=== PATIENT | female | born 1940 | race Two or more races ===

== ENCOUNTER 2020-08-15 15:18 | Observation (INO) | payer SELFPAY ==
[~2020-08-15] VITALS: Ht 149.9 cm; Wt 82.6 kg
[2020-08-15 15:56] LABS: BASO % 1 % (0-3); EOS # 0.1 x10^3/uL (0.0-0.7); EOS % 2 % (0-3); HEMOGLOBIN 11.6 g/dL (12.0-15.5); LYMPH # 1.3 x10^3/uL (1.0-4.8); LYMPH % 27 % (24-48); MEAN CORPUSCULAR HEMOGLOBIN 34 pg (25-35); MEAN CORPUSCULAR HGB CONC 34 g/dL (31-37); MEAN CORPUSCULAR VOLUME 99 fL (79-100); MONO # 0.5 x10^3/uL (0.0-1.1); MONO % 10 % (0-9); NEUT % 61 % (31-73); PLATELET COUNT 247 x10^3/uL (140-400); RED BLOOD COUNT 3.45 x10^6/uL (3.50-5.40); RED CELL DISTRIBUTION WIDTH 13.7 % (11.5-14.5)
--- NOTE | 2020-08-15 16:05 | RAD ---
XR CHEST 1V History: Reason: chest pain / Spl. Instructions: / History: Comparison: None. Findings: Patchy left basilar opacity. No consolidation or pleural effusion. Normal heart size. No pneumothorax . Glenohumeral DJD. Impression: 1. Patchy left basilar opacity, may represent atelectasis or developing infiltrate. If persistent cl inical concern, recommend follow-up. Electronically signed by: Juan Alberto Macdonald DO (08/15/2020 4:02 PM) [facility]
[2020-08-15 16:07] LABS: CALCIUM 9.8 mg/dL (8.5-10.1); GFR 23.9; POTASSIUM 4.8 mmol/L (3.5-5.1)
[2020-08-15 16:13] LABS: ALBUMIN 3.9 g/dL (3.4-5.0); ALBUMIN/GLOBULIN RATIO 1.1 (1.0-1.7); TOTAL BILIRUBIN 0.4 mg/dL (0.2-1.0); TOTAL PROTEIN 7.6 g/dL (6.4-8.2)
[2020-08-15] MEDS ORDERED: ASPIRIN CHEWABLE 81 MG TABLET. PO ONE (16:15)
--- NOTE | 2020-08-15 16:25 | PHYS DOC ---
Past Medical History Past Medical History: Diabetes-Type II, High Cholesterol, Hypertension Additional Past Medical Histor: CKD, OSTEOPOROSIS, OA, VAGINAL BLEEDING 07/26 Past Surgical History: Cholecystectomy, Knee Replacement Smoking Status: Never Smoker Alcohol Use: None General Adult EDM: Chief Complaint: CHEST PAIN HPI: HPI: Patient is a 80 year old [f__sex] who presents with [] Review of Systems: Review of Systems: Constitutional: Denies fever or chills Eyes: Denies redness or eye pain HENT: Denies nasal congestion or sore throat Respiratory: Denies cough or shortness of breath Cardiovascular: Reports chest pain; reports palpitations GI: Denies abdominal pain, nausea, or vomiting : Denies dysuria or hematuria Musculoskeletal: Denies back pain or joint pain Integument: Denies rash or skin lesions Neurologic: Denies headache, focal weakness or sensory changes Complete systems were reviewed and found to be within normal limits, except as documented in this note. Heart Score: C/O Chest Pain: Yes HEART Score for Chest Pain: HEART Score for Chest Pain Response (Comments) Value History Moderately Suspicious 1 ECG Normal 0 Age > 65 2 Risk Factors >3 Risk Factors or Hx CAD 2 Troponin < Normal Limit 0 Total 5 Risk Factors: Risk Factors: DM, Current or recent (<one month) smoker, HTN, HLP, family history of CAD, obesity. Risk Scores: Score 0 - 3: 2.5% MACE over next 6 weeks - Discharge Home Score 4 - 6: 20.3% MACE over next 6 weeks - Admit for Clinical Observation Score 7 - 10: 72.7% MACE over next 6 weeks - Early Invasive Strategies Current Medications: Current Medications Medications (Trade) Dose Ordered Sig/Kings Start Time Stop Time Status Last Admin Dose Admin Aspirin (Aspirin Chewable) 243 mg 1X ONCE 08/15/20 16:15 08/15/20 16:16 DC 08/15/20 16:18 243 MG Allergies: Allergies: Allergies Coded Allergies Type Severity Reaction Last Updated Verified NAEEM Inhibitors Allergy Intermediate 08/15/20 Yes Physical Exam: PE: Constitutional: Well developed, well nourished, no acute distress, non-toxic appearance HENT: Normocephalic, atraumatic Eyes: PERRL, EOMI, conjunctiva normal, no discharge Neck: Normal range of motion, no tenderness, supple Lungs & Thorax: No respiratory distress, equal chest rise and fall Abdomen: Soft, no tenderness Skin: Warm, dry, no erythema, no rash Back: No tenderness, no CVA tenderness Extremities: No tenderness, ROM intact, no edema Neurologic: Alert and oriented X 3, normal motor function, normal sensory function, no focal deficits noted Psychologic: Affect normal, judgment normal Current Patient Data: Labs: Laboratory Tests Test 08/15/20 15:38 White Blood Count 5.0 x10^3/uL (4.0-11.0) Red Blood Count 3.45 x10^6/uL (3.50-5.40) L Hemoglobin 11.6 g/dL (12.0-15.5) L Hematocrit 34.0 % (36.0-47.0) L Mean Corpuscular Volume 99 fL (79-100) Mean Corpuscular Hemoglobin 34 pg (25-35) Mean Corpuscular Hemoglobin Concent 34 g/dL (31-37) Red Cell Distribution Width 13.7 % (11.5-14.5) Platelet Count 247 x10^3/uL (140-400) Neutrophils (%) (Auto) 61 % (31-73) Lymphocytes (%) (Auto) 27 % (24-48) Monocytes (%) (Auto) 10 % (0-9) H Eosinophils (%) (Auto) 2 % (0-3) Basophils (%) (Auto) 1 % (0-3) Neutrophils # (Auto) 3.0 x10^3/uL (1.8-7.7) Lymphocytes # (Auto) 1.3 x10^3/uL (1.0-4.8) Monocytes # (Auto) 0.5 x10^3/uL (0.0-1.1) Eosinophils # (Auto) 0.1 x10^3/uL (0.0-0.7) Basophils # (Auto) 0.0 x10^3/uL (0.0-0.2) Sodium Level 143 mmol/L (136-145) Potassium Level 4.8 mmol/L (3.5-5.1) Chloride Level 108 mmol/L (98-107) H Carbon Dioxide Level 23 mmol/L (21-32) Anion Gap 12 (6-14) Blood Urea Nitrogen 43 mg/dL (7-20) H Creatinine 2.0 mg/dL (0.6-1.0) H Estimated GFR (Cockcroft-Gault) 23.9 BUN/Creatinine Ratio 22 (6-20) H Glucose Level 94 mg/dL (70-99) Calcium Level 9.8 mg/dL (8.5-10.1) Magnesium Level 2.0 mg/dL (1.8-2.4) Total Bilirubin 0.4 mg/dL (0.2-1.0) Aspartate Amino Transferase (AST) 16 U/L (15-37) Alanine Aminotransferase (ALT) 26 U/L (14-59) Alkaline Phosphatase 84 U/L (46-116) Troponin I Quantitative < 0.017 ng/mL (0.000-0.055) Total Protein 7.6 g/dL (6.4-8.2) Albumin 3.9 g/dL (3.4-5.0) Albumin/Globulin Ratio 1.1 (1.0-1.7) Lipase 255 U/L (73-393) Laboratory Tests 08/15/20 15:38 Laboratory Tests 08/15/20 15:38 Vital Signs: Vital Signs Date Time Temp Pulse Resp B/P (MAP) Pulse Ox O2 Delivery O2 Flow Rate FiO2 08/15/20 15:33 98.8 69 12 163/81 (108) 100 Room Air 98.8 EKG: EKG: @1532 NSR at 66bpm, NO ST elevation, QRS 80ms, QT/QTc 394/415ms @1707 NSR at 76bpm, occasional PVC, NO ST elevation, QRS 86ms, QT/QTc 380/432ms Radiology/Procedures: Radiology/Procedures: PROCEDURE: PORTABLE CHEST 1V XR CHEST 1V History: Reason: chest pain / Spl. Instructions: / History: Comparison: None. Findings: Patchy left basilar opacity. No consolidation or pleural effusion. Normal heart size. No pneumothorax. Glenohumeral DJD. Impression: 1. Patchy left basilar opacity, may represent atelectasis or developing infiltrate. If persistent clinical concern, recommend follow-up. Electronically signed by: Juan Alberto Macdonald DO (08/15/2020 4:02 PM) [facility] Course & Med Decision Making: Course & Med Decision Making Pertinent Labs and Imaging studies reviewed. (See chart for details) Patient requiring admission for further evaluation and treatment. Discussed with Dr. Lo (hospitalist) who is in agreement with admission. Discussed fi ndings and plan with patient and family, who acknowledge understanding and agreement. Barry Disclaimer: Barry Disclaimer: This electronic medical record was generated, in whole or in part, using a voice recognition dictation system. Departure Departure Impression: Primary Impression: Chest pain Qualified Codes: R07.9 - Chest pain, unspecified Disposition: 09 ADMITTED INPATIENT (Observation) Admitting Physician: YONG Jalloh) Condition: STABLE DEVENDRA SUMMERS DO Aug 15, 2020 16:25
[2020-08-15] MEDS ORDERED: DEXTROSE 50% 25 GM / 50ML DISP.SYRIN. IV PRN (18:30)
[2020-08-15] MEDS ORDERED: fentaNYL PF VIAL 100 MCG/2 ML VIAL IV PRN (18:30)
[2020-08-15] MEDS ORDERED: ONDANSETRON PF 4 MG/2 ML VIAL. IV PRN (18:30)
[2020-08-15 20:50] VITALS: BP 146/66
[2020-08-15] MEDS ORDERED: NITROGLYCERIN SUBLINGUAL 0.4 MG BOTTLE OF 25. SL PRN (21:15)
[2020-08-15] MEDS ORDERED: MORPHINE SULFATE 4 MG/ML VIAL. IV PRN (21:15)
[2020-08-15] MEDS ORDERED: hydrALAZINE 20 MG/ML VIAL. IVP PRN (21:15)
--- NOTE | 2020-08-15 21:16 | PDOC1 ---
History and Physical Date of Admission Date of Admission DATE: 08/15/20 TIME: 20:59 Identification/Chief Complaint Chief Complaint Chest pain Source Source: Caregiver, Patient History of Present Illness History of Present Illness Patient is a 80-year-old female with past medical history prediabetes, HLD, HTN, CKD IV, prediabetes, who presents to the ED at the behest of her PCP with complaints of left-sided chest pain that started today. Patient is largely Azeri-speaking so much history is obtained from her daughter. She reports chest pain 10/10 that feels more like pressure. She denies any history of similar symptoms and denies any other associated symptoms. Labs on admission showed hemoglobin 11.6, hematocrit 34, BUN 43, creatinine 2.0, troponin <0.017. In ED she received aspirin and at the time my evaluation states her pain is now resolved. Given her significant cardiac risk factors, will admit patient for further medical management. Past Medical History Past Medical History HLD, HTN, prediabetes, CKD, OA Past Surgical History Past Surgical History Cholecystectomy, Knee Replacement Family History Family History: Hypertension Social History Smoke: No ALCOHOL: none Drugs: None Current Problem List Problem List Problems Medical Problems: (1) Chest pain Status: Acute Current Medications Current Medications Current Medications Aspirin (Aspirin Chewable) 243 mg 1X ONCE PO Last administered on 08/15/20at 16:18; Start 08/15/20 at 16:15; Stop 08/15/20 at 16:16; Status DC Ondansetron HCl (Zofran) 4 mg PRN Q8HRS PRN IV NAUSEA/VOMITING; Start 08/15/20 at 18:30; Stop 08/16/20 at 18:29 Fentanyl Citrate (Fentanyl 2ml Vial) 25 mcg Q2HR PRN IV PAIN; Start 08/15/20 at 18:30; Stop 08/16/20 at 18:29 Insulin Human Lispro (HumaLOG) 0-5 UNITS TIDWMEALS SQ ; Start 08/16/20 at 08:00 Dextrose (Dextrose 50%-Water Syringe) 12.5 gm PRN Q15MIN PRN IV SEE COMMENTS; Start 08/15/20 at 18:30 Allergies Allergies: Coded Allergies: NAEEM Inhibitors (Verified Allergy, Intermediate, 08/15/20) ROS Review of System GENERAL: No history of weight change, weakness or fevers. SKIN: No bruising, hair changes or rashes. EYES: No blurred, double or loss of vision. NOSE AND THROAT: No history of nosebleeds, hoarseness or sore throat. HEART: Chest pain. Denies palpitations. LUNGS: Denies cough, hemoptysis, wheezing or shortness of breath. GASTROINTESTINAL: Denies nausea, vomiting, abdominal pain. GENITOURINARY: Denies dysuria, frequency, urgency, hematuria. NEUROLOGIC: Denies history of numbness, tingling, tremor or weakness. PSYCHIATRIC: Denies anxiety, denies depression. ENDOCRINE: No history of heat or cold intolerance, polyuria or polydipsia. EXTREMITIES: Denies muscle weakness, joint pain, pain on walking or stiffness. Physical Exam Physical Exam General: Alert, Oriented X3, Cooperative, No acute distress HEENT: PERRLA, EOMI Lungs: Clear to auscultation, Normal air movement Heart: RRR, no murmurs Cardiovascular: S1, S2 Abdomen: Normal bowel sounds, Soft, No tenderness Extremities: No clubbing, No cyanosis Skin: No rashes, No significant lesion Neuro: Normal speech, Normal tone, Sensation intact Psych/Mental Status: Mental status NL, Mood NL Vitals Vitals Vital Signs Date Time Temp Pulse Resp B/P (MAP) Pulse Ox O2 Delivery O2 Flow Rate FiO2 08/15/20 20:50 98.1 59 18 146/66 (92) 100 Room Air 98.1 Labs Labs Laboratory Tests Test 08/15/20 15:38 08/15/20 19:05 White Blood Count 5.0 x10^3/uL (4.0-11.0) Red Blood Count 3.45 x10^6/uL (3.50-5.40) Hemoglobin 11.6 g/dL (12.0-15.5) Hematocrit 34.0 % (36.0-47.0) Mean Corpuscular Volume 99 fL (79-100) Mean Corpuscular Hemoglobin 34 pg (25-35) Mean Corpuscular Hemoglobin Concent 34 g/dL (31-37) Red Cell Distribution Width 13.7 % (11.5-14.5) Platelet Count 247 x10^3/uL (140-400) Neutrophils (%) (Auto) 61 % (31-73) Lymphocytes (%) (Auto) 27 % (24-48) Monocytes (%) (Auto) 10 % (0-9) Eosinophils (%) (Auto) 2 % (0-3) Basophils (%) (Auto) 1 % (0-3) Neutrophils # (Auto) 3.0 x10^3/uL (1.8-7.7) Lymphocytes # (Auto) 1.3 x10^3/uL (1.0-4.8) Monocytes # (Auto) 0.5 x10^3/uL (0.0-1.1) Eosinophils # (Auto) 0.1 x10^3/uL (0.0-0.7) Basophils # (Auto) 0.0 x10^3/uL (0.0-0.2) Sodium Level 143 mmol/L (136-145) Potassium Level 4.8 mmol/L (3.5-5.1) Chloride Level 108 mmol/L (98-107) Carbon Dioxide Level 23 mmol/L (21-32) Anion Gap 12 (6-14) Blood Urea Nitrogen 43 mg/dL (7-20) Creatinine 2.0 mg/dL (0.6-1.0) Estimated GFR (Cockcroft-Gault) 23.9 BUN/Creatinine Ratio 22 (6-20) Glucose Level 94 mg/dL (70-99) Calcium Level 9.8 mg/dL (8.5-10.1) Magnesium Level 2.0 mg/dL (1.8-2.4) Total Bilirubin 0.4 mg/dL (0.2-1.0) Aspartate Amino Transf (AST/SGOT) 16 U/L (15-37) Alanine Aminotransferase (ALT/SGPT) 26 U/L (14-59) Alkaline Phosphatase 84 U/L (46-116) Creatine Kinase 97 U/L (26-192) Creatine Kinase MB (Mass) 1.6 ng/mL (0.0-3.6) Creatine Kinase MB Relative Index 1.6 % (0-4) Troponin I Quantitative < 0.017 ng/mL (0.000-0.055) < 0.017 ng/mL (0.000-0.055) QB-Hjf-W-Type Natriuretic Peptide 255 pg/mL (0-449) Total Protein 7.6 g/dL (6.4-8.2) Albumin 3.9 g/dL (3.4-5.0) Albumin/Globulin Ratio 1.1 (1.0-1.7) Lipase 255 U/L (73-393) Laboratory Tests Test 08/15/20 15:38 08/15/20 19:05 White Blood Count 5.0 x10^3/uL (4.0-11.0) Red Blood Count 3.45 x10^6/uL (3.50-5.40) Hemoglobin 11.6 g/dL (12.0-15.5) Hematocrit 34.0 % (36.0-47.0) Mean Corpuscular Volume 99 fL (79-100) Mean Corpuscular Hemoglobin 34 pg (25-35) Mean Corpuscular Hemoglobin Concent 34 g/dL (31-37) Red Cell Distribution Width 13.7 % (11.5-14.5) Platelet Count 247 x10^3/uL (140-400) Neutrophils (%) (Auto) 61 % (31-73) Lymphocytes (%) (Auto) 27 % (24-48) Monocytes (%) (Auto) 10 % (0-9) Eosinophils (%) (Auto) 2 % (0-3) Basophils (%) (Auto) 1 % (0-3) Neutrophils # (Auto) 3.0 x10^3/uL (1.8-7.7) Lymphocytes # (Auto) 1.3 x10^3/uL (1.0-4.8) Monocytes # (Auto) 0.5 x10^3/uL (0.0-1.1) Eosinophils # (Auto) 0.1 x10^3/uL (0.0-0.7) Basophils # (Auto) 0.0 x10^3/uL (0.0-0.2) Sodium Level 143 mmol/L (136-145) Potassium Level 4.8 mmol/L (3.5-5.1) Chloride Level 108 mmol/L (98-107) Carbon Dioxide Level 23 mmol/L (21-32) Anion Gap 12 (6-14) Blood Urea Nitrogen 43 mg/dL (7-20) Creatinine 2.0 mg/dL (0.6-1.0) Estimated GFR (Cockcroft-Gault) 23.9 BUN/Creatinine Ratio 22 (6-20) Glucose Level 94 mg/dL (70-99) Calcium Level 9.8 mg/dL (8.5-10.1) Magnesium Level 2.0 mg/dL (1.8-2.4) Total Bilirubin 0.4 mg/dL (0.2-1.0) Aspartate Amino Transf (AST/SGOT) 16 U/L (15-37) Alanine Aminotransferase (ALT/SGPT) 26 U/L (14-59) Alkaline Phosphatase 84 U/L (46-116) Creatine Kinase 97 U/L (26-192) Creatine Kinase MB (Mass) 1.6 ng/mL (0.0-3.6) Creatine Kinase MB Relative Index 1.6 % (0-4) Troponin I Quantitative < 0.017 ng/mL (0.000-0.055) < 0.017 ng/mL (0.000-0.055) KK-Tjz-C-Type Natriuretic Peptide 255 pg/mL (0-449) Total Protein 7.6 g/dL (6.4-8.2) Albumin 3.9 g/dL (3.4-5.0) Albumin/Globulin Ratio 1.1 (1.0-1.7) Lipase 255 U/L (73-393) Images Images PATIENT: JESSA ALVAREZ LACCOUNT: [id number] : 1940 LOCATION: ER AGE: 80 SEX: F EXAM STATUS: PRE ER ORD. PHYSICIAN: DEVENDRA SUMMERS DO REASON: chest pain PROCEDURE: PORTABLE CHEST 1V XR CHEST 1V History: Reason: chest pain / Spl. Instructions: / History: Comparison: None. Findings: Patchy left basilar opacity. No consolidation or pleural effusion. Normal heart size. No pneumothorax. Glenohumeral DJD. Impression: 1. Patchy left basilar opacity, may represent atelectasis or developing infiltrate. If persistent clinical concern, recommend follow-up. Electronically signed by: Juan Alberto Macdonald DO (08/15/2020 4:02 PM) [facility] VTE Prophylaxis Ordered VTE Prophylaxis Devices: No VTE Pharmacological Prophylaxi: Yes Assessment/Plan Assessment/Plan Chest pain Chronic renal insufficiency Prediabetes Plan: Initial troponin <0.017, will continue to trend and place consultation to cardiology. Provide morphine and nitroglycerin as needed Echocardiogram pending Telemetry HbA1c 6.2 (08/08/2020) Lipids pending Resume home medications FEN - Cardiac diet, then NPO after midnight. PPX - Heparin DNR Dispo - inpatient for above Advance Care Planning: Total time spent [id number] with patient 16 minutes in discussion with goals of care, comfort care, end-of-life care, pain management, code status; patient names her daughter (Ceci Garcia) as surrogate decision- maker. Justifications for Admission Other Justification CHELSI TENORIO MD Aug 15, 2020 21:16
[2020-08-15] MEDS ORDERED: CALCIUM CARBONATE 500 MG TAB.CHEW PO PRN (21:30)
[2020-08-15] MEDS ORDERED: MORPHINE SULFATE 2 MG/ML VIAL. IV PRN (21:30)
[2020-08-15] MEDS ORDERED: MAGNESIUM HYDROXIDE 2,400 MG/30 ML ORAL.SUSP. PO PRN (21:30)
[2020-08-15] MEDS ORDERED: ONDANSETRON PF 4 MG/2 ML VIAL. IVP PRN (21:30)
[2020-08-15] MEDS ORDERED: ZOLPIDEM 5 MG TABLET. PO PRN (21:30)
[2020-08-15] MEDS ORDERED: BISACODYL 10 MG SUPP.RECT. PR PRN (21:30)
[2020-08-15] MEDS ORDERED: MAG HYDROX/ALUMINUM HYD/SIMETH 30 ML ORAL.SUSP PO PRN (21:30)
[2020-08-15] MEDS ORDERED: ACETAMINOPHEN 325 MG TABLET. PO PRN (21:30)
[2020-08-15 22:25] VITALS: BP 121/59
[2020-08-16] MEDS ORDERED: CHLO25TA10 PO (02:00)
[2020-08-16] MEDS ORDERED: [UNRECOGNIZED DRUG - CODE] IV (02:00)
[2020-08-16] MEDS ORDERED: LIDO700A21 TP (02:00)
[2020-08-16] MEDS ORDERED: ATOR40TA59 PO (02:00)
[2020-08-16] MEDS ORDERED: LORA10TA3 PO (02:00)
[2020-08-16] MEDS ORDERED: CARV6.2511 PO (02:00)
[2020-08-16] MEDS ORDERED: OMEG1CAP38 PO (02:00)
[2020-08-16] MEDS ORDERED: DICL20GE TP (02:00)
[2020-08-16] MEDS ORDERED: LOSA-73 PO (02:00)
[2020-08-16] MEDS ORDERED: SODI650T PO (02:00)
[2020-08-16 02:14] VITALS: BP 152/68
[2020-08-16 07:00] VITALS: BP 151/66
[2020-08-16 07:11] LABS: CALCIUM 9.3 mg/dL (8.5-10.1); CREATININE 2.1 mg/dL (0.6-1.0); GFR 22.6
[2020-08-16 07:17] LABS: CHOLESTEROL/HDL RATIO 4.6
[2020-08-16] MEDS ORDERED: INSULIN LISPRO 300 UNITS/3 ML VIAL. SQ SCH (08:00)
--- NOTE | 2020-08-16 08:38 | PDOC ---
[employer] PROGRESS NOTE Date of Service DOS: DATE: 08/16/20 TIME: 08:38 Chief Complaint Chief Complaint A/P: Chest pain Chronic renal insufficiency Prediabetes - a1c 6.2 Abnormal chest x-ray -procalcitonin negative no cough. This is atelectasis. Plan: Initial troponin <0.017, will continue to trend and place consultation to cardiology. Provide morphine and nitroglycerin as needed Echocardiogram pending Telemetry HbA1c 6.2 (08/08/2020) Lipids pending Resume home medications FEN - Cardiac diet, then NPO after midnight. PPX - Heparin DNR Dispo - inpatient for above Advance Care Planning: Total time spent [id number] with patient 16 minutes in discussion with goals of care, comfort care, end-of-life care, pain management, code status; patient names her daughter (Ceci Garcia) as surrogate decision-maker. History of Present Illness History of Present Illness Patient is a 80-year-old female with past medical history prediabetes, HLD, HTN, CKD IV, prediabetes, who presents to the ED at the behest of her PCP with complaints of left-sided chest pain that started today. Patient is largely [place]an-speaking so much history is obtained from her daughter. She reports chest pain 10/10 that feels more like pressure. She denies any history of similar symptoms and denies any other associated symptoms. Labs on admission showed hemoglobin 11.6, hematocrit 34, BUN 43, creatinine 2.0, troponin <0.017. In ED she received aspirin and at the time my evaluation states her pain is now resolved. Given her significant cardiac risk factors, will admit patient for further medical management. Triglycerides 174, LDL 81, HDL 32. Creatinine stable at 2.1 troponins trended out negative. CP resolved. No SOB. BP still a bit up, added amlodipine. Echocardiogram today. Consults: Cardiology Vitals/I&O Vitals/I&O: Vital Signs Date Time Temp Pulse Resp B/P (MAP) Pulse Ox O2 Delivery O2 Flow Rate FiO2 08/16/20 07:00 97.8 64 16 151/66 (94) 98 Room Air 97.8 I & O 08/15/20 08/15/20 08/16/20 15:00 23:00 07:00 Intake Total 0 ml Balance 0 ml Physical Exam General: Alert, Oriented X3, Cooperative Heart: Regular rate, Normal S1, Normal S2 Lungs: Clear Abdomen: Normal bowel sounds, Soft Extremities: No clubbing, No cyanosis Skin: No rashes, No breakdown Labs Labs: Laboratory Tests Test 08/15/20 15:38 08/15/20 19:05 08/15/20 21:35 08/16/20 06:20 White Blood Count 5.0 x10^3/uL (4.0-11.0) Red Blood Count 3.45 x10^6/uL (3.50-5.40) Hemoglobin 11.6 g/dL (12.0-15.5) Hematocrit 34.0 % (36.0-47.0) Mean Corpuscular Volume 99 fL (79-100) Mean Corpuscular Hemoglobin 34 pg (25-35) Mean Corpuscular Hemoglobin Concent 34 g/dL (31-37) Red Cell Distribution Width 13.7 % (11.5-14.5) Platelet Count 247 x10^3/uL (140-400) Neutrophils (%) (Auto) 61 % (31-73) Lymphocytes (%) (Auto) 27 % (24-48) Monocytes (%) (Auto) 10 % (0-9) Eosinophils (%) (Auto) 2 % (0-3) Basophils (%) (Auto) 1 % (0-3) Neutrophils # (Auto) 3.0 x10^3/uL (1.8-7.7) Lymphocytes # (Auto) 1.3 x10^3/uL (1.0-4.8) Monocytes # (Auto) 0.5 x10^3/uL (0.0-1.1) Eosinophils # (Auto) 0.1 x10^3/uL (0.0-0.7) Basophils # (Auto) 0.0 x10^3/uL (0.0-0.2) Sodium Level 143 mmol/L (136-145) 145 mmol/L (136-145) Potassium Level 4.8 mmol/L (3.5-5.1) 5.0 mmol/L (3.5-5.1) Chloride Level 108 mmol/L (98-107) 110 mmol/L (98-107) Carbon Dioxide Level 23 mmol/L (21-32) 22 mmol/L (21-32) Anion Gap 12 (6-14) 13 (6-14) Blood Urea Nitrogen 43 mg/dL (7-20) 42 mg/dL (7-20) Creatinine 2.0 mg/dL (0.6-1.0) 2.1 mg/dL (0.6-1.0) Estimated GFR (Cockcroft-Gault) 23.9 22.6 BUN/Creatinine Ratio 22 (6-20) Glucose Level 94 mg/dL (70-99) 109 mg/dL (70-99) Calcium Level 9.8 mg/dL (8.5-10.1) 9.3 mg/dL (8.5-10.1) Magnesium Level 2.0 mg/dL (1.8-2.4) Total Bilirubin 0.4 mg/dL (0.2-1.0) Aspartate Amino Transf (AST/SGOT) 16 U/L (15-37) Alanine Aminotransferase (ALT/SGPT) 26 U/L (14-59) Alkaline Phosphatase 84 U/L (46-116) Creatine Kinase 97 U/L (26-192) Creatine Kinase MB (Mass) 1.6 ng/mL (0.0-3.6) Creatine Kinase MB Relative Index 1.6 % (0-4) Troponin I Quantitative < 0.017 ng/mL (0.000-0.055) < 0.017 ng/mL (0.000-0.055) < 0.017 ng/mL (0.000-0.055) BO-Tge-C-Type Natriuretic Peptide 255 pg/mL (0-449) Total Protein 7.6 g/dL (6.4-8.2) Albumin 3.9 g/dL (3.4-5.0) Albumin/Globulin Ratio 1.1 (1.0-1.7) Lipase 255 U/L (73-393) Triglycerides Level 174 mg/dL (0-150) Cholesterol Level 148 mg/dL (0-200) LDL Cholesterol, Calculated 81 mg/dL (0-100) VLDL Cholesterol, Calculated 35 mg/dL (0-40) Non-HDL Cholesterol Calculated 116 mg/dL (0-129) HDL Cholesterol 32 mg/dL (40-60) Cholesterol/HDL Ratio 4.6 Assessment and Plan Assessmemt and Plan Problems Medical Problems: (1) Chest pain Status: Acute Comment Review of Relevant I have reviewed the following items rosendo (where applicable) has been applied. Medications: Current Medications Medications (Trade) Dose Ordered Sig/Kings Route PRN Reason Start Time Stop Time Status Last Admin Dose Admin Aspirin (Aspirin Chewable) 243 mg 1X ONCE PO 08/15/20 16:15 08/15/20 16:16 DC 08/15/20 16:18 Justifications for Admission Other Justification RADHA LERMA MD Aug 16, 2020 08:38
[2020-08-16] MEDS ORDERED: HEPARIN for SUB-Q USE 5,000 UNIT/ML VIAL. SQ SCH (09:00)
--- NOTE | 2020-08-16 10:42 | NUR ---
SS following for discharge planning. SS reviewed pt chart and discussed with pt RN. Pt is from home with spouse and is currently on room air. Cardiology consulted. Self pay. Med Assist following and applying for [place] [employer]. SS will continue to follow for discharge planning.
[2020-08-16 10:51] VITALS: BP 174/77
--- NOTE | 2020-08-16 10:57 | PDOC2 ---
KATERINA MARTIN UTILITY HAND 08/16/20 1057: CARDIAC CONSULT DATE OF CONSULT Date of Consult DATE: 08/16/20 TIME: 10:36 REASON FOR CONSULT Reason for Consult: Chest pain REFERRING PHYSICIAN Referring Physician: Aleksandra SOURCE Source: Caregiver (grandson, spouse), Chart review, Patient HISTORY OF PRESENT ILLNESS HISTORY OF PRESENT ILLNESS This is a pleasant 80 yo female admitted for complains of chest pain. Reports that she started having this pain mainly to her left lower midsternal angle at subcostal region and reproducible with palpation. No prior falls, MVA or injuty. No associated SOA, palpitations, nausea or vomiting. No changes to her activity tolerance. Her BP was elevated when she came. No prior hx of CAD, VTE or arrhythmias. PAST MEDICAL HISTORY Cardiovascular: HTN, Hyperlipidemia Pulmonary: No pertinent hx CENTRAL NERVOUS SYSTEM: Other (No pertinent history) GI: No pertinent hx Heme/Onc: No pertinent hx Hepatobiliary: No pertinent hx Psych: No pertinent hx Musculoskeletal: Osteoarthritis Infectious disease: No pertinent hx ENT: Other (cataract) Renal/: Chronic renal insuff Endocrine: Diabetes Dermatology: No pertinent hx PAST SURGICAL HISTORY Past Surgical History: Cholecystectomy, Total knee replacement FAMILY HISTORY Family History noncontributory to CV SOCIAL HISTORY Smoke: No ALCOHOL: none Drugs: None Lives: with Family CURRENT MEDICATIONS CURRENT MEDICATIONS Current Medications Medications (Trade) Dose Ordered Sig/Kings Route PRN Reason Start Time Stop Time Status Last Admin Dose Admin Aspirin (Aspirin Chewable) 243 mg 1X ONCE PO 08/15/20 16:15 08/15/20 16:16 DC 08/15/20 16:18 Heparin Sodium (Porcine) (Heparin Sodium) 5,000 unit Q12HR SQ 08/16/20 09:00 08/16/20 10:22 ALLERGIES ALLERGIES: Coded Allergies: NAEEM Inhibitors (Verified Allergy, Intermediate, 08/15/20) ROS Review of System 14 point ROS evaluated with pertinent positives noted per HPI PHYSICAL EXAM General: Alert, Oriented X3, Cooperative, No acute distress HEENT: Atraumatic, Mucous membr. moist/pink Lungs: Clear to auscultation, Normal air movement Heart: Regular rate (SR), Normal S1, Normal S2, No murmurs Abdomen: Soft, No tenderness Extremities: No cyanosis, No edema Skin: No breakdown, No significant lesion Neuro: Normal speech, Sensation intact Psych/Mental Status: Mental status NL, Mood NL MUSCULOSKELETAL: Osteoarthritic changes both hands VITALS/I&O VITALS/I&O: Vital Signs Date Time Temp Pulse Resp B/P (MAP) Pulse Ox O2 Delivery O2 Flow Rate FiO2 08/16/20 07:00 97.8 64 16 151/66 (94) 98 Room Air 97.8 I & O 08/15/20 08/15/20 08/16/20 15:00 23:00 07:00 Intake Total 0 ml Balance 0 ml LABS Lab: Laboratory Tests Test 08/15/20 15:38 08/15/20 19:05 08/15/20 21:35 08/16/20 06:20 White Blood Count 5.0 x10^3/uL (4.0-11.0) Red Blood Count 3.45 x10^6/uL (3.50-5.40) L Hemoglobin 11.6 g/dL (12.0-15.5) L Hematocrit 34.0 % (36.0-47.0) L Mean Corpuscular Volume 99 fL (79-100) Mean Corpuscular Hemoglobin 34 pg (25-35) Mean Corpuscular Hemoglobin Concent 34 g/dL (31-37) Red Cell Distribution Width 13.7 % (11.5-14.5) Platelet Count 247 x10^3/uL (140-400) Neutrophils (%) (Auto) 61 % (31-73) Lymphocytes (%) (Auto) 27 % (24-48) Monocytes (%) (Auto) 10 % (0-9) H Eosinophils (%) (Auto) 2 % (0-3) Basophils (%) (Auto) 1 % (0-3) Neutrophils # (Auto) 3.0 x10^3/uL (1.8-7.7) Lymphocytes # (Auto) 1.3 x10^3/uL (1.0-4.8) Monocytes # (Auto) 0.5 x10^3/uL (0.0-1.1) Eosinophils # (Auto) 0.1 x10^3/uL (0.0-0.7) Basophils # (Auto) 0.0 x10^3/uL (0.0-0.2) Sodium Level 143 mmol/L (136-145) 145 mmol/L (136-145) Potassium Level 4.8 mmol/L (3.5-5.1) 5.0 mmol/L (3.5-5.1) Chloride Level 108 mmol/L (98-107) H 110 mmol/L (98-107) H Carbon Dioxide Level 23 mmol/L (21-32) 22 mmol/L (21-32) Anion Gap 12 (6-14) 13 (6-14) Blood Urea Nitrogen 43 mg/dL (7-20) H 42 mg/dL (7-20) H Creatinine 2.0 mg/dL (0.6-1.0) H 2.1 mg/dL (0.6-1.0) H Estimated GFR (Cockcroft-Gault) 23.9 22.6 BUN/Creatinine Ratio 22 (6-20) H Glucose Level 94 mg/dL (70-99) 109 mg/dL (70-99) H Calcium Level 9.8 mg/dL (8.5-10.1) 9.3 mg/dL (8.5-10.1) Magnesium Level 2.0 mg/dL (1.8-2.4) Total Bilirubin 0.4 mg/dL (0.2-1.0) Aspartate Amino Transferase (AST) 16 U/L (15-37) Alanine Aminotransferase (ALT) 26 U/L (14-59) Alkaline Phosphatase 84 U/L (46-116) Creatine Kinase 97 U/L (26-192) Creatine Kinase MB (Mass) 1.6 ng/mL (0.0-3.6) Creatine Kinase MB Relative Index 1.6 % (0-4) Troponin I Quantitative < 0.017 ng/mL (0.000-0.055) < 0.017 ng/mL (0.000-0.055) < 0.017 ng/mL (0.000-0.055) XH-Wpg-P-Type Natriuretic Peptide 255 pg/mL (0-449) Total Protein 7.6 g/dL (6.4-8.2) Albumin 3.9 g/dL (3.4-5.0) Albumin/Globulin Ratio 1.1 (1.0-1.7) Lipase 255 U/L (73-393) Triglycerides Level 174 mg/dL (0-150) H Cholesterol Level 148 mg/dL (0-200) LDL Cholesterol, Calculated 81 mg/dL (0-100) VLDL Cholesterol, Calculated 35 mg/dL (0-40) Non-HDL Cholesterol Calculated 116 mg/dL (0-129) HDL Cholesterol 32 mg/dL (40-60) L Cholesterol/HDL Ratio 4.6 Procalcitonin < 0.10 ng/mL (0.00-0.10) Laboratory Tests 08/15/20 15:38 Laboratory Tests 08/15/20 15:38 08/16/20 06:20 ASSESSMENT/PLAN ASSESSMENT/PLAN 1. Atypical chest pain: suspect MSK 2. DM2 3. HTN urgency: labile episodes 4. HLP 5. CKD: possibly 3-4 Recommendations 1. TTE pending. May DC this afternoon. Discussed with pt and grandson about CAD symptoms 2. ASA. Continue home BP and statin meds. HBPM 3. Given her CKD I would not continue her chlorthalidone. Continue losartan, coreg and will add norvasc. 4. She will need a nephrology referral if she does not have a specialist LUIS EDUARDO PAINTER MD 08/16/20 1456: CARDIAC CONSULT ASSESSMENT/PLAN ASSESSMENT/PLAN Patient seen and examined. Agree with SURGICAL TECHNOLOGY INSTRUCTOR's assessment and plan CP with atypical features. CO ruled out 2D echo showed normal LVF without any wall motion abnormalities Agree with adding norvasc for better BP control Ischemic workup could be considered as outpatient Thank you for your consultation KATERINA MARTIN APRN Aug 16, 2020 10:57 LUIS EDUARDO PAINTER MD Aug 16, 2020 14:56
[2020-08-16] MEDS ORDERED: CARVEDILOL 6.25 MG TABLET. PO SCH (11:30)
[2020-08-16] MEDS ORDERED: AMLO-186 PO (11:38)
--- NOTE | 2020-08-16 11:41 | PDOC3 ---
Discharge Summary Visit Information Date of Admission: Aug 15, 2020 Date of Discharge: Aug 16, 2020 Admitting Diagnosis: Chest pain Final Diagnosis Problems Medical Problems: (1) Chest pain Status: Acute Brief Hospital Course Allergies Allergies Coded Allergies Type Severity Reaction Last Updated Verified NAEEM Inhibitors Allergy Intermediate 08/15/20 Yes Vital Signs Vital Signs Date Time Temp Pulse Resp B/P (MAP) Pulse Ox O2 Delivery O2 Flow Rate FiO2 08/16/20 10:51 98.0 64 18 174/77 (109) 97 Room Air 98.0 Lab Results Laboratory Tests Test 08/15/20 15:38 08/15/20 19:05 08/15/20 21:35 08/16/20 06:20 White Blood Count 5.0 x10^3/uL (4.0-11.0) Red Blood Count 3.45 x10^6/uL (3.50-5.40) Hemoglobin 11.6 g/dL (12.0-15.5) Hematocrit 34.0 % (36.0-47.0) Mean Corpuscular Volume 99 fL (79-100) Mean Corpuscular Hemoglobin 34 pg (25-35) Mean Corpuscular Hemoglobin Concent 34 g/dL (31-37) Red Cell Distribution Width 13.7 % (11.5-14.5) Platelet Count 247 x10^3/uL (140-400) Neutrophils (%) (Auto) 61 % (31-73) Lymphocytes (%) (Auto) 27 % (24-48) Monocytes (%) (Auto) 10 % (0-9) Eosinophils (%) (Auto) 2 % (0-3) Basophils (%) (Auto) 1 % (0-3) Neutrophils # (Auto) 3.0 x10^3/uL (1.8-7.7) Lymphocytes # (Auto) 1.3 x10^3/uL (1.0-4.8) Monocytes # (Auto) 0.5 x10^3/uL (0.0-1.1) Eosinophils # (Auto) 0.1 x10^3/uL (0.0-0.7) Basophils # (Auto) 0.0 x10^3/uL (0.0-0.2) Sodium Level 143 mmol/L (136-145) 145 mmol/L (136-145) Potassium Level 4.8 mmol/L (3.5-5.1) 5.0 mmol/L (3.5-5.1) Chloride Level 108 mmol/L (98-107) 110 mmol/L (98-107) Carbon Dioxide Level 23 mmol/L (21-32) 22 mmol/L (21-32) Anion Gap 12 (6-14) 13 (6-14) Blood Urea Nitrogen 43 mg/dL (7-20) 42 mg/dL (7-20) Creatinine 2.0 mg/dL (0.6-1.0) 2.1 mg/dL (0.6-1.0) Estimated GFR (Cockcroft-Gault) 23.9 22.6 BUN/Creatinine Ratio 22 (6-20) Glucose Level 94 mg/dL (70-99) 109 mg/dL (70-99) Calcium Level 9.8 mg/dL (8.5-10.1) 9.3 mg/dL (8.5-10.1) Magnesium Level 2.0 mg/dL (1.8-2.4) Total Bilirubin 0.4 mg/dL (0.2-1.0) Aspartate Amino Transf (AST/SGOT) 16 U/L (15-37) Alanine Aminotransferase (ALT/SGPT) 26 U/L (14-59) Alkaline Phosphatase 84 U/L (46-116) Creatine Kinase 97 U/L (26-192) Creatine Kinase MB (Mass) 1.6 ng/mL (0.0-3.6) Creatine Kinase MB Relative Index 1.6 % (0-4) Troponin I Quantitative < 0.017 ng/mL (0.000-0.055) < 0.017 ng/mL (0.000-0.055) < 0.017 ng/mL (0.000-0.055) WI-Lba-B-Type Natriuretic Peptide 255 pg/mL (0-449) Total Protein 7.6 g/dL (6.4-8.2) Albumin 3.9 g/dL (3.4-5.0) Albumin/Globulin Ratio 1.1 (1.0-1.7) Lipase 255 U/L (73-393) Triglycerides Level 174 mg/dL (0-150) Cholesterol Level 148 mg/dL (0-200) LDL Cholesterol, Calculated 81 mg/dL (0-100) VLDL Cholesterol, Calculated 35 mg/dL (0-40) Non-HDL Cholesterol Calculated 116 mg/dL (0-129) HDL Cholesterol 32 mg/dL (40-60) Cholesterol/HDL Ratio 4.6 Procalcitonin < 0.10 ng/mL (0.00-0.10) Laboratory Tests Test 08/15/20 15:38 08/15/20 19:05 08/15/20 21:35 08/16/20 06:20 White Blood Count 5.0 x10^3/uL (4.0-11.0) Red Blood Count 3.45 x10^6/uL (3.50-5.40) Hemoglobin 11.6 g/dL (12.0-15.5) Hematocrit 34.0 % (36.0-47.0) Mean Corpuscular Volume 99 fL (79-100) Mean Corpuscular Hemoglobin 34 pg (25-35) Mean Corpuscular Hemoglobin Concent 34 g/dL (31-37) Red Cell Distribution Width 13.7 % (11.5-14.5) Platelet Count 247 x10^3/uL (140-400) Neutrophils (%) (Auto) 61 % (31-73) Lymphocytes (%) (Auto) 27 % (24-48) Monocytes (%) (Auto) 10 % (0-9) Eosinophils (%) (Auto) 2 % (0-3) Basophils (%) (Auto) 1 % (0-3) Neutrophils # (Auto) 3.0 x10^3/uL (1.8-7.7) Lymphocytes # (Auto) 1.3 x10^3/uL (1.0-4.8) Monocytes # (Auto) 0.5 x10^3/uL (0.0-1.1) Eosinophils # (Auto) 0.1 x10^3/uL (0.0-0.7) Basophils # (Auto) 0.0 x10^3/uL (0.0-0.2) Sodium Level 143 mmol/L (136-145) 145 mmol/L (136-145) Potassium Level 4.8 mmol/L (3.5-5.1) 5.0 mmol/L (3.5-5.1) Chloride Level 108 mmol/L (98-107) 110 mmol/L (98-107) Carbon Dioxide Level 23 mmol/L (21-32) 22 mmol/L (21-32) Anion Gap 12 (6-14) 13 (6-14) Blood Urea Nitrogen 43 mg/dL (7-20) 42 mg/dL (7-20) Creatinine 2.0 mg/dL (0.6-1.0) 2.1 mg/dL (0.6-1.0) Estimated GFR (Cockcroft-Gault) 23.9 22.6 BUN/Creatinine Ratio 22 (6-20) Glucose Level 94 mg/dL (70-99) 109 mg/dL (70-99) Calcium Level 9.8 mg/dL (8.5-10.1) 9.3 mg/dL (8.5-10.1) Magnesium Level 2.0 mg/dL (1.8-2.4) Total Bilirubin 0.4 mg/dL (0.2-1.0) Aspartate Amino Transf (AST/SGOT) 16 U/L (15-37) Alanine Aminotransferase (ALT/SGPT) 26 U/L (14-59) Alkaline Phosphatase 84 U/L (46-116) Creatine Kinase 97 U/L (26-192) Creatine Kinase MB (Mass) 1.6 ng/mL (0.0-3.6) Creatine Kinase MB Relative Index 1.6 % (0-4) Troponin I Quantitative < 0.017 ng/mL (0.000-0.055) < 0.017 ng/mL (0.000-0.055) < 0.017 ng/mL (0.000-0.055) KD-Chx-X-Type Natriuretic Peptide 255 pg/mL (0-449) Total Protein 7.6 g/dL (6.4-8.2) Albumin 3.9 g/dL (3.4-5.0) Albumin/Globulin Ratio 1.1 (1.0-1.7) Lipase 255 U/L (73-393) Triglycerides Level 174 mg/dL (0-150) Cholesterol Level 148 mg/dL (0-200) LDL Cholesterol, Calculated 81 mg/dL (0-100) VLDL Cholesterol, Calculated 35 mg/dL (0-40) Non-HDL Cholesterol Calculated 116 mg/dL (0-129) HDL Cholesterol 32 mg/dL (40-60) Cholesterol/HDL Ratio 4.6 Procalcitonin < 0.10 ng/mL (0.00-0.10) Brief Hospital Course Ms Del Valle is a 80-year-old female with past medical history prediabetes, HLD, HTN, CKD IV who presents to the ED at the behest of her PCP with complaints of left-sided chest pain that started today. Patient is largely Albanian- speaking so much history is obtained from her daughter. She reports chest pain 10/10 that feels more like pressure. She denies any history of similar symptoms and denies any other associated symptoms. Labs on admission showed hemoglobin 11.6, hematocrit 34, BUN 43, creatinine 2.0, troponin <0.017. In ED she received aspirin and at the time my evaluation states her pain is now resolved. Given her significant cardiac risk factors, will admit patient for further medical management. Triglycerides 174, LDL 81, HDL 32. Creatinine stable at 2.1 troponins trended out negative. CP resolved. No SOB. BP still a bit up, added amlodipine. Echocardiogram today. Consults: Cardiology Pain resolved with addition of amlodipine and treatment of GERD. Problem list: Chest pain Chronic renal insufficiency - follow up outpatient with nephrology Prediabetes - a1c 6.2 - diet control. Metformin contraindicated in CKD and patient over age 80 Abnormal chest x-ray -procalcitonin negative no cough. This is atelectasis. Echo with left ventricular systolic function normal ejection fraction estimated at 55%, normal LV segmental wall motion mild aortic regurgitation mild tricuspid regurgitation with estimated PAP 32 to 35 mmHg. Discussed findings with family bedside gave referral for outpatient nephrology follow-up as well as cardiology follow-up and primary care. Social work to get sobra application for noncitizen. Amlodipine 5 mg sent to [facility] and instructed to stop chlorthalidone okay to continue carvedilol Greater than 30 minutes spent on d/c home with family Discharge Information Condition at Discharge: Improved Follow Up: Weeks (1) Disposition/Orders: D/C to Home Scheduled Acetaminophen (Acetaminophen) 1,000 Mg/100 Ml Piggyback, 500 MG IV BID for , (Reported) Entered as Reported by: Veronica Massey on 08/16/20199 Last Action: Reviewed on 08/16/20200 by Veronica Massey Amlodipine Besylate (Amlodipine Besylate) 5 Mg Tablet, 5 MG PO DAILY for HTN for 90 Days, #90 Ref 1 Prescribed by: RADHA LERMA MD on 08/16/20 1138 Atorvastatin Calcium (Atorvastatin Calcium) 40 Mg Tablet, 1 TAB PO QHS for , #90 Ref 3 (Reported) Entered as Reported by: Veronica Massey on 08/16/20199 Last Action: Continued on 08/16/201055 by KATERINA MARTIN Carvedilol (Carvedilol ) 6.25 Mg Tablet, 6.25 MG PO BIDWMEALS for CARDIAC, (Reported) Entered as Reported by: Veronica Massey on 08/16/20199 Last Action: Continued on 08/16/201055 by KATERINA MARTIN Diclofenac Sodium (Voltaren Arthritis Pain) 20 Gm Gel..gram., 20 GM TP BID for , (Reported) Entered as Reported by: Veronica Massey on 08/16/20199 Last Action: Reviewed on 08/16/20200 by Veronica Massey Lidocaine (Lidocaine PATCH ) 1 Each Adh..patch, 1 EACH TP DAILY for FOR LOCAL PAIN, (Reported) REMOVE AFTER 12 HOURS Entered as Reported by: Veronica Massey on 08/16/20199 Last Action: Reviewed on 08/16/20200 by Veronica Massey Loratadine (Loratadine) 10 Mg Tablet, 1 TAB PO DAILY for , #30 Ref 5 (Reported) Entered as Reported by: Veronica Massey on 08/16/20199 Last Action: Reviewed on 08/16/20200 by Veronica Massey Losartan Potassium (Losartan Potassium) 50 Mg Tablet, 50 MG PO DAILY for HYPERTENSION, (Reported) Entered as Reported by: Veronica Massey on 08/16/20199 Last Action: Continued on 08/16/201055 by KATERINA MARTIN Pearl-3 Fatty Acids/Fish Oil (Pearl 3 Fish Oil Softgel) 1 Each Capsule.dr, 1 EACH PO BID for , (Reported) Entered as Reported by: Veronica Massey on 08/16/20199 Last Action: Reviewed on 08/16/20200 by Veronica Massye Sodium Bicarbonate (Sodium Bicarbonate) 650 Mg Tablet, 2 TAB PO BID for , #60 Ref 5 (Reported) Entered as Reported by: Veronica Massey on 08/16/20199 Last Action: Reviewed on 08/16/20200 by Veronica Massey Discontinued Medications Chlorthalidone (Chlorthalidone ) 25 Mg Tablet, 25 MG PO DAILY for DIURETIC, (Reported) Entered as Reported by: Veronica Massey on 08/16/20199 Last Action: Discontinued on 08/16/20 1056 by KATERINA MARTIN Justicifation of Admission Dx: Justifications for Admission: Justification of Admission Dx: Yes RADHA LERMA MD Aug 16, 2020 11:41
[2020-08-16] MEDS ORDERED: ASPIRIN ENTERIC COATED 81 MG TABLET.DR. PO SCH (12:00)
[2020-08-16] MEDS ORDERED: LOSARTAN POTASSIUM 50 MG TABLET. PO SCH (12:00)
--- NOTE | 2020-08-16 12:37 | CARD ---
MR#: [id number] Date of Study: 08/16/2020 Ordering Physician: CHELSI TEONRIO, Referring Physician: CHELSI TENORIO, Tech: Jacki Em [facility] APPROVED REPORT EXAM: Two-dimensional and M-mode echocardiogram with Doppler and color Doppler. Other Information Quality : Average Rhythm : NSR INDICATION Chest Pain RISK FACTORS Hypertension Obesity 2D DIMENSIONS RVDd2.6 (2.9-3.5cm)Left Atrium(2D)3.4 (1.6-4.0cm) IVSd1.2 (0.7-1.1cm)Aortic Root(2D)2.9 (2.0-3.7cm) LVDd4.1 (3.9-5.9cm)LVOT Diameter1.8 (1.8-2.4cm) PWd1.2 (0.7-1.1cm)LVDs2.8 (2.5-4.0cm) FS (%) 31.8 %SV44.7 ml LVEF(%)60.3 (>50%) Aortic Valve AoV Peak Riccardo.149.8cm/sAoV VTI36.2cm AO Peak GR.9.0mmHgLVOT Peak Riccardo.91.0cm/s AO Mean GR.5mmHgAVA (VMAX)1.60cm2 AI P 1/2 [id number] Mitral Valve MV E Sibwaier59.3cm/sMV DECEL [id number] MV A Npgppdxu568.0cm/sE/A Ratio0.6 Pulmonary Valve PV Peak Zmvwcihw996.3cm/s Tricuspid Valve TR P. [id number]/sTR Peak Gr.29mmHg LEFT VENTRICLE The left ventricle is normal size. There is mild concentric left ventricular hypertrophy. The left ve ntricular systolic function is normal and the ejection fraction is within normal range. Estimated eje citon fraction 55%. There is normal LV segmental wall motion. Transmitral Doppler flow pattern is Gra de I-abnormal relaxation pattern. RIGHT VENTRICLE The right ventricle is normal size. There is normal right ventricular wall thickness. The right ventr icular systolic function is normal. ATRIA The left atrium size is normal. The right atrium size is normal. The interatrial septum is intact wit h no evidence for an atrial septal defect or patent foramen ovale as noted on 2-D or Doppler imaging. AORTIC VALVE The aortic valve is normal in structure and function. Doppler and Color Flow revealed mild aortic reg urgitation. There is no significant aortic valvular stenosis. MITRAL VALVE The mitral valve is normal in structure and function. There is no evidence of mitral valve prolapse. There is no mitral valve stenosis. Doppler and Color-flow revealed mild mitral regurgitation. TRICUSPID VALVE The tricuspid valve is normal in structure and function. Doppler and Color Flow revealed mild tricusp id regurgitation. Estimated PAP 32-35 mmHg. There is no tricuspid valve stenosis. PULMONIC VALVE Doppler and Color Flow revealed no pulmonic valvular regurgitation. There is no pulmonic valvular jaydon nosis. GREAT VESSELS The aortic root is normal in size. The ascending aorta is normal in size. The IVC is normal in size a nd collapses >50% with inspiration. PERICARDIAL EFFUSION There is no evidence of significant pericardial effusion. Critical Notification Critical Value: No <Conclusion> The left ventricular systolic function is normal and the ejection fraction is within normal range. E stimated ejeciton fraction 55%. There is normal LV segmental wall motion. Doppler and Color Flow revealed mild aortic regurgitation. Doppler and Color Flow revealed mild tricuspid regurgitation. Estimated PAP 32-35 mmHg. Signed by : Bart Devlin, Electronically Approved : 08/16/2020 12:36:48
[2020-08-16 14:51] VITALS: BP 126/66
--- NOTE | 2020-08-16 17:06 | NUR ---
Discharge Note: JESSA ALVAREZ AMA Discharge instructions and discharge home medications reviewed with Patient and a copy given. All questions have been answered and understanding verbalized. The following instructions and handouts were given: chest pain, amlodipine, HTN IV discontinued, no complications. Patient discharged to home with self care. All belongings taken home with patient. (analytical technician phone used for discharge teaching)
[2020-08-16] MEDS ORDERED: ATORVASTATIN CALCIUM 40 MG TABLET. PO SCH (21:00)
[2020-08-19] MEDS ORDERED: SODI650T PO (12:11)
== END 2020-08-16 15:45 | disposition home or self-care (01) ==
LOC: ER 15:18 → 2 NORTH 18:16
PROVIDERS: ADMIT Family Medicine; ATTEND Family Medicine
DX: R07.89 Other chest pain (principal); I16.0 Hypertensive urgency; I12.9 Hypertensive chronic kidney disease with stage 1 through stage 4 chronic kidney disease, or unspecified chronic kidney disease; N18.4 Chronic kidney disease, stage 4 (severe); E11.22 Type 2 diabetes mellitus with diabetic chronic kidney disease; E78.5 Hyperlipidemia, unspecified; E78.00 Pure hypercholesterolemia, unspecified; M81.0 Age-related osteoporosis without current pathological fracture; H26.9 Unspecified cataract; M19.90 Unspecified osteoarthritis, unspecified site; Z90.49 Acquired absence of other specified parts of digestive tract; Z96.659 Presence of unspecified artificial knee joint; Z79.82 Long term (current) use of aspirin; Z79.4 Long term (current) use of insulin
CPT/HCPCS: 36415; 71045; 80048; 80053; 80061; 82553; 83690; 83735; 83880; 84145; 84484; 85025; 93005; 93306; 96372; 99285; G0378; J1644; G0379